=== PATIENT | male | born 2000 | race Caucasian/White ===

== ENCOUNTER → 2023-07-06 | Outpatient (CLI) | payer OTHER ==
[2023-07-06 14:12] LABS: ALT/SGPT 21 U/L (7.0-40); AST/SGOT 20 U/L (<34); TRIGLYCERIDES LEVEL 157 MG/DL (<150)
== END ==
LOC: M LAB 13:04
PROVIDERS: ATTEND Dermatology
DX: L70.0 Acne vulgaris (principal)